=== PATIENT | male | born 1950 | race Two or more races ===

== ENCOUNTER 2018-11-07 01:30 | Emergency (ER) | payer MEDICARE, OTHER ==
[~2018-11-07] VITALS: Ht 180.3 cm; Wt 96.2 kg
[2018-11-07] MEDS ORDERED: ASPIR 8181 MG ORAL (01:44)
[2018-11-07] MEDS ORDERED: AMLODIPINE BESYL5 MG ORAL (01:44)
[2018-11-07 01:45] VITALS: BP 164/96
--- NOTE | 2018-11-07 02:10 | Emergency Room Report ---
History of Present Illness General Chief Complaint: Pain Source: Patient Present Illness HPI Patient presents with complaints of what he reports as left-sided sciatic pain Reports that he has had multiple problems in the past including bilateral knees lower back he used to get injections for his sciatic problems in the past Is not sure exactly with flared up this pain however he has had increased discomfort over the past several days Denies any fevers or chills denies any chest pain denies any vomiting denies any saddle paresthesia Denies any recent trauma Allergies: Coded Allergies: No Known Allergies (Unverified , 11/07/18) Patient History Past Medical History: see triage record Reviewed Nursing Documentation: PMH: Agreed; PSxH: Agreed Nursing Documentation-PMH Past Medical History: No History, Except For Hx Cardiac Problems: Yes - Knee Surgery, Appendix removed, Quadruple Bypass Hx Hypertension: Yes Review of Systems All Other Systems: negative except mentioned in HPI Physical Exam Vital Signs Date Time Temp Pulse Resp B/P (MAP) Pulse Ox O2 Delivery O2 Flow Rate FiO2 11/07/18 01:39 98.4 95 18 164/96 (118) 95 Room Air Sp02 EP Interpretation: reviewed, normal General Appearance: no apparent distress Head: normocephalic, atraumatic Eyes: bilateral eye PERRL, bilateral eye EOMI ENT: normal pharynx Neck: supple, thyroid normal Respiratory: lungs clear Cardiovascular #1: regular rate, rhythm Gastrointestinal: non tender, soft Musculoskeletal: other - Brace on the right knee in place, midline low back no step-offs increased discomfort on palpation of the left posterior superior iliac crest on palpation, ambulatory and sensory intact otherwise Neurologic: alert, oriented x3, responsive Skin: no rash Lymphatic: no adenopathy Medical Decision Making Diagnostic Impression: Primary Impression: Sciatic leg pain ER Course Patient's clinical history and exam appears to be consistent with likely sciatic pain other differentials including neurological, neurosurgical Muscular skeletal pathology entertained as well Patient has known previous pathology At this time there are no evidence of acute endorgan injury patient treated for acute pain and requires close outpatient follow-up Last Vital Signs Date Time Temp Pulse Resp B/P (MAP) Pulse Ox O2 Delivery O2 Flow Rate FiO2 11/07/18 01:39 98.4 95 18 164/96 (118) 95 Room Air Status: improved Disposition: HOME, SELF-CARE Condition: Improved Scripts Methocarbamol* (ROBAXIN-750*) 750 Mg Tablet 750 MG PO TID, #21 TAB 0 Refills Prov: Wong Guadarrama DO 11/07/18 Methylprednisolone (Methylprednisolone*) 4MG Dspk 4 MG ORAL DIRECTED for 6 Days, #21 EA 0 Refills Day 1: Two tablets before breakfast, one after lunch, one after dinner, and two at bedtime. If started late in the day, take all six tablets at once or divide into two or three doses, unless otherwise directed by prescriber. Day 2: One tablet before breakfast, one after lunch, one after dinner, and two at bedtime Day 3: One tablet before breakfast, one after lunch, one after dinner, and one at bedtime Day 4: One tablet before breakfast, one after lunch, and one at bedtime Day 5: One tablet before breakfast and one at bedtime Day 6: One tablet before breakfast Prov: Wong Guadarrama DO 11/07/18 Additional Instructions: Patient is provided with the discharge instructions notified to follow up with primary doctor in the next 2-3 days otherwise return to the er with any worsening symptoms. Please note that this report is being documented using [employer] technology. This can lead to erroneous entry secondary to incorrect interpretation by the dictating instrument. Wong Guadarrama DO Nov 07, 2018 02:10
[2018-11-07] MEDS ORDERED: Methocarbamol 750mg tab ORAL ONE (02:15)
[2018-11-07] MEDS ORDERED: Ketorolac 60mg Inj IM ONE (02:15)
[2018-11-07] MEDS ORDERED: MEDROL DOSEPAK4 MG ORAL (02:32)
[2018-11-07] MEDS ORDERED: ROBAXIN-750750 MG PO (02:32)
== END 2018-11-07 03:04 | disposition home or self-care (01) ==
LOC: EMR 01:58
DX: M54.32 Sciatica, left side (principal); Z90.49 Acquired absence of other specified parts of digestive tract; Z95.1 Presence of aortocoronary bypass graft; I10 Essential (primary) hypertension
CPT/HCPCS: 96372; 99283